=== PATIENT | female | born 1965 | race Caucasian/White ===

== ENCOUNTER 2017-04-20 22:28 | Emergency (ER) | payer OTHER ==
[2017-04-20 22:45] VITALS: RESP 18; TEMP 98.3
--- NOTE | 2017-04-20 23:10 | ED ---
General Adult HPI - General Chief complaint: Extremity Injury, Upper Stated complaint: broken finger on left hand Time Seen by Provider: 04/20/17 22:47 Source: patient, RN notes reviewed Mode of arrival: ambulatory Limitations: no limitations - History of Present Illness Initial comments: 51-year-old female with no significant past medical history presents status post fall with left fourth finger injury. Patient states she was walking in the words tripped and fell landing on her hand. She complains of pain and deformity of her left fourth finger. She denies any other injury. Denies head or neck pain. - Related Data Home Medications Medication Instructions Recorded Confirmed No Known Home Medications [No 04/20/17 04/20/17 Known Home Medications] Allergies Allergy/AdvReac Type Severity Reaction Status Date / Time No Known Allergies Allergy Verified 04/20/17 22:44 Review of Systems ROS Statement: Those systems with pertinent positive or pertinent negative responses have been documented in the HPI. ROS Other: All systems not noted in ROS Statement are negative. Past Medical History Past Medical History: No Reported History History of Any Multi-Drug Resistant Organisms: None Reported Past Surgical History: Orthopedic Surgery Additional Past Surgical History / Comment(s): Right shoulder surgery Past Psychological History: No Psychological Hx Reported Smoking Status: Never smoker Past Alcohol Use History: None Reported Past Drug Use History: None Reported General Exam Limitations: no limitations General appearance: alert, in no apparent distress Head exam: Present: atraumatic, normocephalic Eye exam: Present: normal appearance, PERRL ENT exam: Present: normal exam Neck exam: Present: normal inspection, full ROM. Absent: tenderness Respiratory exam: Present: normal lung sounds bilaterally. Absent: respiratory distress Cardiovascular Exam: Present: regular rate, normal rhythm GI/Abdominal exam: Present: soft. Absent: distended Extremities exam: Present: other (Gross deformity of the left fourth digit with lateral angulation. Overlying skin is intact. Cap refill within normal limits. ) Neurological exam: Present: alert, oriented X3 Psychiatric exam: Present: normal affect, normal mood Skin exam: Present: warm, dry Course Vital Signs 04/20/17 22:41 Temperature 98.3 F Pulse Rate 82 Respiratory 18 Rate Blood Pressure 119/55 O2 Sat by Pulse 100 Oximetry Procedures - Orthopedic Fracture Reduction Fracture #1 Consent Obtained: verbal consent Time Out Performed: Yes Side: left Fracture Reduction Location: finger, other (Left fourth PIP) Analgesia: none Technique: direct manipulation, traction/counter-traction Post Reduction X-rays Demonstrate: anatomical reduction Post-Reduction Neuro Exam: intact Post-Reduction Vascular Exam: intact Splint Applied: Yes Patient Tolerated Procedure: well Medical Decision Making - Medical Decision Making 51 yo female presents status post trip and fall with left fourth finger injury. On initial examination patient has ulnar deviation of the left fourth digit at the PIP. Patient has minimal pain. Traction is applied and joint is reduced. Patient has no other injury. No other complaints. X-ray of the left digits, specifically the left fourth digit: Shows no acute fracture or dislocation. Patient is instructed to apply ice for any swelling, take [id number] Tylenol Motrin for pain. Patient will follow-up with her primary care physician and will follow-up with hand surgery as needed. Disposition Clinical Impression: Dislocation, finger, interphalangeal joint Disposition: HOME SELF-CARE Instructions: Finger Dislocation (ED) Referrals: Faye Emmanuel MD [Primary Care Provider] - 1-2 days Dk Avendaño DO [Doctor of Osteopathic Medicine] - 1-2 days Time of Disposition: 00:00
--- NOTE | 2017-04-21 00:18 | XR ---
EXAM: XR Left Finger(s), 2 or More Views CLINICAL HISTORY: Reason: pain TECHNIQUE: Frontal, lateral and oblique views focused on the ring finger of the left hand. COMPARISON: No relevant prior studies available. FINDINGS: No acute fracture or dislocation. IMPRESSION: No acute fracture or dislocation.
[2017-04-21 00:38] VITALS: BP 120/62; PULSE 62
== END 2017-04-21 00:36 | disposition home or self-care (01) ==
LOC: EC 22:28
DX: S63.285A Dislocation of proximal interphalangeal joint of left ring finger, initial encounter (principal); Z98.890 Other specified postprocedural states; W01.0XXA Fall on same level from slipping, tripping and stumbling without subsequent striking against object, initial encounter; Y93.01 Activity, walking, marching and hiking
CPT/HCPCS: 26770; 99283

== ENCOUNTER 2017-07-08 17:28 | Inpatient (IN) | payer OTHER ==
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
[2017-07-09] MEDS ORDERED: ZIPRASIDONE 20 MG VIAL IM PRN (01:02)
[2017-07-09] MEDS ORDERED: ACETAMINOPHEN TAB 325 MG TAB PO PRN (01:02)
[2017-07-09] MEDS ORDERED: LORazepam 1 MG TAB PO PRN (01:02)
[2017-07-09] MEDS ORDERED: MAGNESIUM HYDROXIDE 2,400 MG/10 ML CUP PO PRN (01:02)
[2017-07-09] MEDS ORDERED: MAG HYDROX/AL HYDROX/SIMETH 30 ML CUP PO PRN (01:02)
[2017-07-09] MEDS: NICOTINE 14MG/24HR PATCH TRANSDERM SCH (09:07)
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
[2017-07-09 11:40] LABS: Cholesterol 213 mg/dL (<200); HDL Cholesterol 80 mg/dL (40-60)
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
[2017-07-10] MEDS: NICOTINE 14MG/24HR PATCH TRANSDERM SCH (09:45)
[2017-07-10 10:56] LABS: Basophils % (A) 1 %; CH 33.3; CHCM 34.2; Eosinophils # (A) 0.1 k/uL (0-0.7); Eosinophils % (A) 2 %; HCT 43.7 % (34.0-46.0); HDW 2.26; HGB 14.8 gm/dL (11.4-16.0); Luc # (Auto) 0.11; Luc % (Auto) 1; Lymphocytes # (A) 1.8 k/uL (1.0-4.8); Lymphocytes % (A) 23 %; MCHC 33.8 g/dL (31.0-37.0); MCV 97.8 fL (80.0-100.0); Monocytes # (A) 0.6 k/uL (0-1.0); Monocytes % (A) 8 %; Neutrophils # (A) 5.1 k/uL (1.3-7.7); Neutrophils % (A) 66 %; RBC 4.47 m/uL (3.80-5.40); RDW 12.7 % (11.5-15.5); WBC 7.8 k/uL (3.8-10.6); WBC (Perox) 7.75
[2017-07-10 11:03] LABS: ALT 33 U/L (9-52); AST 25 U/L (14-36); Alkaline Phosphatase 50 U/L (38-126); Anion Gap 9 mmol/L; Blood Urea Nitrogen 11 mg/dL (7-17); Calcium 9.7 mg/dL (8.4-10.2); Carbon Dioxide 27 mmol/L (22-30); Chloride 103 mmol/L (98-107); Glucose 81 mg/dL (74-99); Non-African American GFR(MDRD) >60 (>60 ml/min/1.73 sqM); Potassium 4.6 mmol/L (3.5-5.1); Sodium 139 mmol/L (137-145); Total Bilirubin 0.8 mg/dL (0.2-1.3); Total Protein 7.4 g/dL (6.3-8.2)
[2017-07-10 13:48] VITALS: BP 116/78; PULSE 54; RESP 18; TEMP 97.4; BMI 20.7
== END 2017-07-10 19:15 | disposition home or self-care (01) | DRG 885 ==
LOC: EC 17:28 → 3MHU 23:41
PROVIDERS: ADMIT Psychiatry & Neurology Psychiatry; ATTEND Psychiatry & Neurology Psychiatry
DX: F31.9 Bipolar disorder, unspecified (principal); F22 Delusional disorders; G47.00 Insomnia, unspecified; F17.200 Nicotine dependence, unspecified, uncomplicated; Z65.8 Other specified problems related to psychosocial circumstances; Z71.6 Tobacco abuse counseling; Z56.0 Unemployment, unspecified; Z81.1 Family history of alcohol abuse and dependence; Z91.419 Personal history of unspecified adult abuse
CPT/HCPCS: 80053; 80061; 80306; 82075; 83036; 84443; 85025; 99285

== ENCOUNTER 2017-07-11 07:56 | Emergency (ER) | payer OTHER ==
[2017-07-11 08:03] VITALS: BP 111/54; PULSE 82; RESP 15; TEMP 97.4
--- NOTE | 2017-07-11 08:32 | ED ---
General Adult HPI - General Chief complaint: Eye Problems Stated complaint: conjunctivitis Time Seen by Provider: 07/11/17 08:14 Source: patient, RN notes reviewed Mode of arrival: ambulatory Limitations: no limitations - History of Present Illness Initial comments: 51-year-old female presents for a right eye conjunctivitis. Patient states that she woke up this morning with crusted shut and she is having a creamy yellow type discharge. Patient states she is photosensitive and it is irritated to touch. Patient denies anything in the eye. Patient does admit to wearing contacts. Patient denies any changes in vision. Patient does admit to history of conjunctivitis in the past. Patient was concerned due to her symptoms so she thought that she should be evaluated.Patient denies any recent fever, chills, shortness of breath, chest pain, back pain, abdominal pain, nausea vomiting, numbness or tingling, dysuria or hematuria, constipation or diarrhea, headaches or visual changes, or any other current symptoms. - Related Data Home Medications Medication Instructions Recorded Confirmed Naproxen Sodium [Aleve] 220 mg PO DAILY PRN 07/11/17 07/11/17 Vitamin B Complex 1 cap PO BID 07/11/17 07/11/17 Previous Rx's Medication Instructions Recorded Tobramycin 0.3% Ophth Oint [Tobrex 1 applic RIGHT EYE TID #1 tube 07/11/17 0.3% Ophth Oint] Allergies Allergy/AdvReac Type Severity Reaction Status Date / Time No Known Allergies Allergy Verified 07/11/17 08:15 Review of Systems ROS Statement: Those systems with pertinent positive or pertinent negative responses have been documented in the HPI. ROS Other: All systems not noted in ROS Statement are negative. Past Medical History Past Medical History: No Reported History History of Any Multi-Drug Resistant Organisms: None Reported Past Surgical History: Section, Orthopedic Surgery Additional Past Surgical History / Comment(s): Right shoulder surgery, Past Anesthesia/Blood Transfusion Reactions: No Reported Reaction Past Psychological History: ADD/ADHD Smoking Status: Current some day smoker Past Alcohol Use History: Occasional Past Drug Use History: None Reported - Past Family History Mother Additional Family Medical History / Comment(s): No known family history of heart disease General Exam Limitations: no limitations General appearance: alert, in no apparent distress Head exam: Present: atraumatic, normocephalic, normal inspection Eye exam: Present: PERRL, EOMI, conjunctival injection (To the right eye). Absent: scleral icterus, periorbital swelling, periorbital tenderness Pupils: Present: normal accommodation Expanded Sclera/Conjunctival: Injection: Right Course Vital Signs 07/11/17 07:59 Temperature 97.4 F L Pulse Rate 82 Respiratory 15 Rate Blood Pressure 111/54 O2 Sat by Pulse 99 Oximetry Medical Decision Making - Medical Decision Making 51-year-old female presents for right eye redness and irritation. This time her symptoms are consistent with conjunctivitis with lamp examination does not show any corneal abrasion. At this time the patient will be started on tobramycin for her symptoms. We did discuss follow-up with her doctor we discussed return parameters all the questions. They stated they understood and they are in agreement plan. All questions have been answered. They will be discharged. Disposition Clinical Impression: Conjunctivitis, right eye Disposition: HOME SELF-CARE Condition: Stable Instructions: Conjunctivitis (ED) Additional Instructions: Please use medication as discussed. Please follow up with family doctor if symptoms have not improved over the next two days. Please return to the emergency room if your symptoms increase or worsen or for any other concerns. Prescriptions: Tobramycin 0.3% Ophth Oint [Tobrex 0.3% Ophth Oint] 1 applic RIGHT EYE TID #1 tube Referrals: Faye Emmanuel MD [Primary Care Provider] - 1-2 days Time of Disposition: 08:31
== END 2017-07-11 08:45 | disposition home or self-care (01) ==
LOC: EC 07:56
DX: H10.9 Unspecified conjunctivitis (principal); F17.200 Nicotine dependence, unspecified, uncomplicated; Z79.899 Other long term (current) drug therapy
CPT/HCPCS: 99283

== ENCOUNTER 2018-09-06 12:00 | Emergency (ER) | payer MEDICAID, OTHER ==
[2018-09-06 12:22] VITALS: BP 135/76; PULSE 76; RESP 18; TEMP 98.1
--- NOTE | 2018-09-06 12:36 | ED ---
General Adult HPI - General Chief complaint: Urogenital Stated complaint: UTI Source: patient, RN notes reviewed, old records reviewed Mode of arrival: ambulatory Limitations: no limitations - History of Present Illness Initial comments: 52-year-old female patient with no pertinent past medical history presents in ED with frequency, dysuria. Patient states that this problem has been ongoing for approximately 2 days. Patient states that she took a cranberry supplement yesterday and had some relief. Patient denies flank pain, fever chills, abdominal pain, nausea vomiting diarrhea. Patient states that she is on her menstrual cycle right now. Patient denies all other complaints. Systemic: Pt denies fatigue, myalgia, fever/chills, rash. Pt denies weakness, night sweats, weight loss. Neuro: Pt denies headache, visual disturbances, syncope or pre-syncope. HEENT: Pt denies ocular discharge or irritation, otalgia, rhinorrhea, pharyngitis or notable lymphadenopathy. Cardiopulmonary: Pt denies chest pain, SOB, heart palpitations, dyspnea on exertion. Abdominal/GI: Pt denies abdominal pain, n/v/d. : Denies new onset urinary or bowel incontinence. MSK: Pt denies myalgia, loss of strength or function in extremities. - Related Data Home Medications Medication Instructions Recorded Confirmed Naproxen Sodium [Aleve] 220 mg PO DAILY PRN 07/11/17 07/11/17 Vitamin B Complex 1 cap PO BID 07/11/17 07/11/17 Previous Rx's Medication Instructions Recorded Tobramycin 0.3% Ophth Oint [Tobrex 1 applic RIGHT EYE TID #1 tube 07/11/17 0.3% Ophth Oint] Nitrofurantoin Macrocrystal 100 mg PO BID 5 Days #10 cap 09/06/18 [Macrodantin] Allergies Allergy/AdvReac Type Severity Reaction Status Date / Time No Known Allergies Allergy Verified 07/11/17 08:15 Review of Systems ROS Statement: Those systems with pertinent positive or pertinent negative responses have been documented in the HPI. ROS Other: All systems not noted in ROS Statement are negative. Past Medical History Past Medical History: No Reported History History of Any Multi-Drug Resistant Organisms: None Reported Past Surgical History: Section, Orthopedic Surgery Additional Past Surgical History / Comment(s): Right shoulder surgery, Past Anesthesia/Blood Transfusion Reactions: No Reported Reaction Past Psychological History: ADD/ADHD Smoking Status: Former smoker Past Alcohol Use History: Occasional Past Drug Use History: None Reported - Past Family History Mother Additional Family Medical History / Comment(s): No known family history of heart disease General Exam - General Exam Comments Initial Comments: Constitutional: NAD, AOX3, Pt has pleasant affect. HEENT: NC/AT, trachea midline, neck supple, no lymphadenopathy. Posterior pharynx non erythematous, without exudates. External ears appear normal, without discharge. Mucous membranes moist. Eyes PERRLA, EOM intact. There is no scleral icterus. No pallor noted. Cardiopulmonary: RRR, no murmurs, rubs or gallops, no JVD noted. Lungs CTAB in anterior and posterior roque. No peripheral edema. Abdominal exam: Abdomen soft and non-distended. Abdomen non-tender to palpation in all 4 quadrants. Flanks nontender to palpation. No ecchymoses. Bowel sounds active in LLQ. No hepatosplenomegaly. CVA tenderness negative bilaterally. Neuro: CN II-XII grossly intact. Limitations: no limitations Course Vital Signs 09/06/18 12:16 Temperature 98.1 F Pulse Rate 76 Respiratory 18 Rate Blood Pressure 135/76 O2 Sat by Pulse 100 Oximetry Medical Decision Making - Medical Decision Making 52-year-old female patient with no pertinent past history and no chronic health conditions presents in ED with dysuria, frequency. Patient states that it feels like detaches hadn't passed. Patient also complains of some cloudy urine. Patient states that she is on her menses. Patient's vital signs are stable. Patient has infectious symptoms at home including, fever chills, nausea vomiting diarrhea, abdominal pain. Physical exam did not reveal gross pathology. UA displayed a UTI. Patient to be treated with outpatient by mouth antibiotic. Patient to return to ED if new signs or symptoms develop including , worsening dysuria, frequency, urgency, abdominal pain, nausea vomiting diarrhea. Pt to f/u with PCP in 1-2 days. Case discussed with Dr. Montague. - Lab Data Lab Results 09/06/18 09/06/18 Range/Units 12:10 12:10 Urine Color Light Yellow Urine Appearance Cloudy H (Clear) Urine pH 6.5 (5.0-8.0) Ur Specific [place] 1.004 (1.001-1.035) Urine Protein Negative (Negative) Urine Glucose (UA) Negative (Negative) Urine Ketones Negative (Negative) Urine Blood Moderate H (Negative) Urine Nitrite Negative (Negative) Urine Bilirubin Negative (Negative) Urine Urobilinogen <2.0 (<2.0) mg/dL Ur Leukocyte Esterase Large H (Negative) Urine RBC 2 (0-5) /hpf Urine WBC 72 H (0-5) /hpf Urine WBC Clumps Rare H (None) /hpf Ur Squamous Epith Cells 4 (0-4) /hpf Urine Bacteria Rare H (None) /hpf Urine Mucus Rare H (None) /hpf Urine HCG, Qual Not Detected (Not Detectd) Disposition Clinical Impression: Urinary tract infection Disposition: HOME SELF-CARE Condition: Good Instructions: Urinary Tract Infection in Women (ED) Additional Instructions: Patient to adhere to previously discussed treatment plan and will take medication(s) as directed. Patient to follow up with PCP in 1-2 days. Patient to return to ED if symptoms do not improve. Prescriptions: Nitrofurantoin Macrocrystal [Macrodantin] 100 mg PO BID 5 Days #10 cap Is patient prescribed a controlled substance at d/c from ED?: No Referrals: None,Stated [Primary Care Provider] - 1-2 days Time of Disposition: 12:51
[2018-09-06 12:42] LABS: Appearance,Urine Cloudy (Clear); Bacteria,Urine Rare /hpf; Bilirubin,Urine Negative (Negative); Blood,Urine Moderate (Negative); Color,Urine Light Yellow; Glucose,Urine (UA) Negative (Negative); Ketones,Urine Negative (Negative); Leukocyte Esterase,Urine Large (Negative); Mucus,Urine Rare /hpf; Nitrite,Urine Negative (Negative); PH, Urine 6.5 (5.0-8.0); Protein,Urine Negative (Negative); RBC,Urine 2 /hpf (0-5); Specific Gravity,Urine 1.004 (1.001-1.035); Squamous Epithelial Cell,Urine 4 /hpf (0-4); Urobilinogen,Urine <2.0 mg/dL (<2.0); WBC,Urine 72 /hpf (0-5)
== END 2018-09-06 13:22 | disposition home or self-care (01) ==
LOC: EC 12:00
DX: N39.0 Urinary tract infection, site not specified (principal); Z87.891 Personal history of nicotine dependence
CPT/HCPCS: 81001; 81025; 99284